=== PATIENT | female | born 2005 | race African-American/Black ===

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

== ENCOUNTER 2024-01-10 18:14 | Emergency (ER) | payer MEDICAID, SELFPAY ==
[2024-01-10] MEDS ORDERED: Ondansetron PF 4 MG/2 ML Vial ONE (18:49)
[2024-01-10] MEDS ORDERED: Pantoprazole 40 MG VIAL ONE (18:49)
[2024-01-10 19:05] LABS: Pregnancy Test - Urine (BHCG) Negative (Negative); Pregu Control Background? CLEAR/WHITE (CLR/WHITE); Pregu Control Bar Appear? YES (CONTROL BAR); Specific Gravity 1.034 (1.002-1.036)
[2024-01-10 19:06] LABS: Bilirubin Small (Negative); Blood, Urine Large (Negative); Glucose, Urine (Dipstick) Negative (Negative); Ketone, Urine Trace mg/dL (Negative); Leukocyte Negative (Negative); Nitrite Negative (Negative); Protein, Urine (Dipstick) 30 mg/dL (Neg-Trace); Urobilinogen 0.2 mg/dL (Less than 2); pH, Urine 5.5 (5.0-9.0)
[2024-01-10 19:07] LABS: Clarity Hazy (Clear); Specific Gravity, Urine 1.034 (1.002-1.036)
[2024-01-10 19:16] LABS: Bacteria/HPF Rare-Few HPF (None Seen); CAUTI Indications for Culture Dysuria,urgency,freq; Mucous/LPF 2+ LPF (<2+); RBC/HPF 21-50 HPF (0-3); Urine Culture Reflex No No
[2024-01-10 19:23] LABS: ALT (SGPT) 11 U/L (8-55); AST (SGOT) 16 U/L (5-30); Albumin 4.6 g/dL (3.5-5.0); Alkaline Phosphatase 69 U/L (40-100); Anion Gap 13 mmol/L (10-20); BUN (Urea Nitrogen) 10 mg/dL (8.4-21.0); Bilirubin, Total 0.5 mg/dL (0.2-1.2); Calc. Creatinine Clearance 0 mL/min (70-130); Calcium 9.6 mg/dL (7.8-10.44); Carbon Dioxide 22 mmol/L (22-29); Chloride 109 mmol/L (98-107); Estimated GFR 85; Globulin 3.7 g/dL (2.4-3.5); Glucose 98 mg/dL (70-105); Potassium 3.8 mmol/L (3.5-5.1); Protein, Total 8.3 g/dL (6.0-8.3); Sodium 140 mmol/L (136-145)
[2024-01-10 19:30] LABS: Band 1 % (5-11); Eosinophils 1 % (0-10); Hematocrit 42.5 % (36.0-47.0); Hemoglobin 12.8 g/dL (12.0-16.0); Lymphocytes 10 % (28-48); MDiff Complete? YES; Mean Corpuscular HGB CONC 30.1 g/dL (32.0-36.0); Mean Corpuscular Hemoglobin 25.9 pg (25.0-35.0); Mean Corpuscular Volume 86.2 fl (78.0-98.0); Mean Platelet Volume 11.6 fL (7.4-10.4); Monocytes 3 % (0-4); Neutrophil 74 % (31-61); Platelet Count 159 10x3/uL (130-400); RBC Distribution Width 12.4 % (11.5-14.5); Red Blood Cell (RBC) Count 4.93 mill/uL (4.00-5.20)
[2024-01-10 19:31] LABS: Manual Diff?? YES; Platelet Adequacy Comment Appears Adequate; RBC Morph Comment Within Normal Limits; Reactive Lymphocytes 11 % (0-10)
[2024-01-10] MEDS ORDERED: Lidocaine Viscous Sol 2% 15 ml UD Cup ONE (19:48)
[2024-01-10] MEDS ORDERED: Mag-Al Plus 1200/1200/120 MG (30 mL) UDCUP ONE (19:48)
[2024-01-10] MEDS ORDERED: Ketorolac Tromethamine 30 MG (1 mL) VIAL ONE (19:48)
== END 2024-01-10 20:39 | disposition home or self-care (01) ==
LOC: MADERS 18:14
DX: K52.9 Noninfective gastroenteritis and colitis, unspecified (principal); R11.2 Nausea with vomiting, unspecified
CPT/HCPCS: 80053; 81001; 81025; 85025; 96374; 96375; C9113; J1885; J2405

== ENCOUNTER 2025-07-31 20:28 | Emergency (ER) | payer OTHER, SELFPAY ==
[2025-07-31] MEDS ORDERED: Tetracaine 0.5% PF 4 ML BOT ONE (20:41)
[2025-07-31] MEDS ORDERED: Fluorescein Opthalmic Strip ONE (20:41)
== END 2025-07-31 21:01 | disposition home or self-care (01) ==
LOC: MADERS 20:28
DX: S05.02XA Injury of conjunctiva and corneal abrasion without foreign body, left eye, initial encounter (principal); X58.XXXA Exposure to other specified factors, initial encounter
CPT/HCPCS: 99283